=== PATIENT | male | born 1960 | race Caucasian/White ===

== ENCOUNTER 2018-01-19 00:06 | Emergency (ER) | payer OTHER ==
[2018-01-19] MEDS ORDERED: LIDOCAINE 1% MPF 5 ML VIAL ONE (00:40)
--- NOTE | 2018-01-19 01:27 | ER ---
Nurse's Notes [facility] Name: Glen Kraft Age: 57 yrs Sex: Male : 1960 Arrival Date: 01/19/2018 Time: 00:08 Bed 7 Private MD: Diagnosis: Crushing injury of right index finger Presentation: 01/19 00:18 Presenting complaint: Patient states: Reports he smashed his finger Saturday on a soda rv machine and today he smashed his finger on a piece of plywood and pain and swelling got worse. Transition of care: patient was not received from another setting of care. Onset of symptoms was January 19, 2018. Risk Assessment: Do you want to hurt yourself or someone else? Patient reports no desire to harm self or others. Initial Sepsis Screen: Does the patient meet any 2 criteria? No. Patient's initial sepsis screen is negative. Does the patient have a suspected source of infection? No. Patient's initial sepsis screen is negative. Care prior to arrival: None. 00:18 Method Of Arrival: Ambulatory rv 00:18 Acuity: RODERICK 3 rv Triage Assessment: 00:31 General: Appears uncomfortable, Behavior is calm, cooperative, appropriate for age. rv Pain: Complains of pain in dorsal aspect of distal phalanx of right index finger and right index fingernail Pain currently is 5 out of 10 on a pain scale. Quality of pain is described as throbbing. Neuro: Level of Consciousness is awake, alert, obeys commands, Oriented to person, place, time, situation. Cardiovascular: Patient's skin is warm and dry. Respiratory: Airway is patent Respiratory effort is even, unlabored, Respiratory pattern is regular, symmetrical. Derm: Skin is pink, warm \T\ dry. Musculoskeletal: Circulation, motion, and sensation intact. Injury Description: hematoma under right index nail bed. Historical: - Allergies: 00:28 No Known Allergies; rv - Home Meds: 00:28 Nexium 40 mg Oral cpDR 1 cap once daily for Gastroesophageal reflux [Active]; rv lisinopril 40 mg Oral tab 1 tab once daily for Hypertension [Active]; isosorbide mononitrate 30 mg Oral Tb24 1 tab once daily for Chronic Stable Angina Pectoris [Active]; hydrochlorothiazide 25 mg Oral tab 1 tab once daily for Hypertension [Active]; Effient 10 mg Oral tab 1 tab once daily for Myocardial Reinfarction Prevention [Active]; carvedilol 6.25 mg Oral tab 1 tab 2 times per day for Hypertension [Active]; atorvastatin 10 mg Oral tab 1 tab once daily for High Blood Pressure [Active]; aspirin 81 mg Oral chew 1 tab once daily [Active]; amlodipine 10 mg tab 1 tab once daily for Hypertension [Active]; - PMHx: 00:28 GERD; Hernia; Hypertension; Myocardial infarction; rv - PSHx: 00:28 Heart stents; Cholecystectomy; Tonsillectomy; wisdom teeth; rv - Immunization history:: Last tetanus immunization: < 10 years ago. - Social history:: Smoking status: Patient/guardian denies using tobacco. - Ebola Screening: : No symptoms or risks identified at this time. Screenin:26 Abuse screen: Denies threats or abuse. Nutritional screening: No deficits noted. rv Tuberculosis screening: No symptoms or risk factors identified. Fall Risk None identified. Assessment: 00:31 General: see triage assessment. tl2 01:58 Reassessment: Patient appears in no apparent distress at this time. Patient and/or tl2 family updated on plan of care and expected duration. Pain level reassessed. Patient is alert, oriented x 3, equal unlabored respirations, skin warm/dry/pink. Pt verbalized understanding of discharge instructions, need for follow up, wound care and prescription usage. Vital Signs: 00:29 BP 147 / 83; Pulse 67; Resp 18; Temp 97.9; Pulse Ox 98% on R/A; Weight 117.93 kg; rv Height 6 ft. 1 in. (185.42 cm); Pain 5/10; 01:04 BP 122 / 79; Pulse 66; Resp 18; Pulse Ox 98% on R/A; tl2 00:29 Body Mass Index 34.30 (117.93 kg, 185.42 cm) rv ED Course: 00:08 Patient arrived in ED. ds1 00:14 Chelle Raymond FNP is PHCP. nh 00:14 Danny Flores MD is Attending Physician. nh 00:20 Arm band placed on right wrist. Patient placed in an exam room, on a stretcher, on rv pulse oximetry. 00:26 Triage completed. rv 00:30 Patient has correct armband on for positive identification. Bed in low position. Call rv light in reach. 00:42 X-ray completed. Portable x-ray completed in exam room. Patient tolerated procedure sg4 well. 00:47 Hand Right 3 View XRAY In Process Unspecified. EDMS 01:57 Dressings: Tube gauze X 1; dorsal aspect of distal phalanx of right index finger. tl2 01:58 No provider procedures requiring assistance completed. Patient did not have IV access tl2 during this emergency room visit. Administered Medications: 01:41 Drug: Tetanus-Diphtheria Toxoid Adult 0.5 ml {Museum Director: [employer]. Exp: tl2 03/01/2020. Lot #: [id number]. } Route: IM; Site: right deltoid; 01:59 Follow up: Response: No adverse reaction tl2 Outcome: 01:26 Discharge ordered by . fl 01:58 Discharged to home ambulatory, with family. tl2 01:58 Condition: stable 01:58 Discharge instructions given to patient, family, Instructed on discharge instructions, follow up and referral plans. medication usage, wound care, Demonstrated understanding of instructions, follow-up care, medications, wound care, Prescriptions given X 3. 01:59 Patient left the ED. tl2 Signatures: Dispatcher [employer] EDMS Chelle Raymond, AMPOULE FILLER AND SEALER AMPOULE FILLER AND SEALER Daria Stanley ds1 Brooke Martínez, RN RN tl2 Dick Bradford, ESTEFANIA RN Evelia Drake sg4
--- NOTE | 2018-01-19 01:27 | EDPHYS ---
Physician Documentation [facility] Name: Glen Kraft Age: 57 yrs Sex: Male : 1960 Arrival Date: 01/19/2018 Time: 00:08 Bed 7 Private MD: ED Physician Danny Flores HPI: 01/19 01:19 This 57 yrs old Male presents to ER via Ambulatory with complaints of Finger nh Injury. 01:19 Mechanism of injury: Crush injury: from sewing machine. Associated injuries: The nh patient sustained right index finger. Onset: The symptoms/episode began/occurred 4 day(s) ago. The patient has not experienced similar symptoms in the past. The patient has not recently seen a physician. Historical: - Allergies: 00:28 No Known Allergies; rv - Home Meds: 00:28 Nexium 40 mg Oral cpDR 1 cap once daily for Gastroesophageal reflux [Active]; rv lisinopril 40 mg Oral tab 1 tab once daily for Hypertension [Active]; isosorbide mononitrate 30 mg Oral Tb24 1 tab once daily for Chronic Stable Angina Pectoris [Active]; hydrochlorothiazide 25 mg Oral tab 1 tab once daily for Hypertension [Active]; Effient 10 mg Oral tab 1 tab once daily for Myocardial Reinfarction Prevention [Active]; carvedilol 6.25 mg Oral tab 1 tab 2 times per day for Hypertension [Active]; atorvastatin 10 mg Oral tab 1 tab once daily for High Blood Pressure [Active]; aspirin 81 mg Oral chew 1 tab once daily [Active]; amlodipine 10 mg tab 1 tab once daily for Hypertension [Active]; - PMHx: 00:28 GERD; Hernia; Hypertension; Myocardial infarction; rv - PSHx: 00:28 Heart stents; Cholecystectomy; Tonsillectomy; wisdom teeth; rv - Immunization history:: Last tetanus immunization: < 10 years ago. - Social history:: Smoking status: Patient/guardian denies using tobacco. - Ebola Screening: : No symptoms or risks identified at this time. ROS: 01:19 Constitutional: Negative for fever, chills, and weight loss, Eyes: Negative for injury, nh pain, redness, and discharge, ENT: Negative for injury, pain, and discharge, Neck: Negative for injury, pain, and swelling, Cardiovascular: Negative for chest pain, palpitations, and edema, Respiratory: Negative for shortness of breath, cough, wheezing, and pleuritic chest pain, Abdomen/GI: Negative for abdominal pain, nausea, vomiting, diarrhea, and constipation, Back: Negative for injury and pain, : Negative for injury, bleeding, discharge, and swelling, Skin: Negative for injury, rash, and discoloration, Neuro: Negative for headache, weakness, numbness, tingling, and seizure, Psych: Negative for depression, anxiety, suicide ideation, homicidal ideation, and hallucinations, Allergy/Immunology: Negative for hives, rash, and allergies, Endocrine: Negative for neck swelling, polydipsia, polyuria, polyphagia, and marked weight changes, Hematologic/Lymphatic: Negative for swollen nodes, abnormal bleeding, and unusual bruising. : MS/extremity: Positive for ecchymosis. Exam: : Constitutional: This is a well developed, well nourished patient who is awake, alert, nh and in no acute distress. Head/Face: Normocephalic, atraumatic. Eyes: Pupils equal round and reactive to light, extra-ocular motions intact. Lids and lashes normal. Conjunctiva and sclera are non-icteric and not injected. Cornea within normal limits. Periorbital areas with no swelling, redness, or edema. ENT: Nares patent. No nasal discharge, no septal abnormalities noted. Tympanic membranes are normal and external auditory canals are clear. Oropharynx with no redness, swelling, or masses, exudates, or evidence of obstruction, uvula midline. Mucous membranes moist. Neck: Trachea midline, no thyromegaly or masses palpated, and no cervical lymphadenopathy. Supple, full range of motion without nuchal rigidity, or vertebral point tenderness. No Meningismus. Chest/axilla: Normal chest wall appearance and motion. Nontender with no deformity. No lesions are appreciated. Cardiovascular: Regular rate and rhythm with a normal S1 and S2. No gallops, murmurs, or rubs. Normal PMI, no JVD. No pulse deficits. Respiratory: Lungs have equal breath sounds bilaterally, clear to auscultation and percussion. No rales, rhonchi or wheezes noted. No increased work of breathing, no retractions or nasal flaring. Abdomen/GI: Soft, non-tender, with normal bowel sounds. No distension or tympany. No guarding or rebound. No evidence of tenderness throughout. Back: No spinal tenderness. No costovertebral tenderness. Full range of motion. MS/ Extremity: Pulses equal, no cyanosis. Neurovascular intact. Full, normal range of motion. Neuro: Awake and alert, GCS 15, oriented to person, place, time, and situation. Cranial nerves II-XII grossly intact. Motor strength 5/5 in all extremities. Sensory grossly intact. Cerebellar exam normal. Normal gait. Psych: Awake, alert, with orientation to person, place and time. Behavior, mood, and affect are within normal limits. 01:19 Skin: subungual hematoma to right index finger with lifting of the nail matrix. Vital Signs: 00:29 BP 147 / 83; Pulse 67; Resp 18; Temp 97.9; Pulse Ox 98% on R/A; Weight 117.93 kg; rv Height 6 ft. 1 in. (185.42 cm); Pain 5/10; 01:04 BP 122 / 79; Pulse 66; Resp 18; Pulse Ox 98% on R/A; tl2 00:29 Body Mass Index 34.30 (117.93 kg, 185.42 cm) rv Procedures: 01:19 Performed fingernail removal. digital block performed to right index finger with lido nh and marcaine with a 4 to 1 ratio. Nail was removed. Patient tolerated well. MDM: 00:14 Patient medically screened. ak 01:19 Data reviewed: vital signs, nurses notes, radiologic studies, I have discussed the ak patient's presentation/case with the attending Emergency Department Physician; and as a result, I will discharge patient. Counseling: I had a detailed discussion with the patient and/or guardian regarding: the historical points, exam findings, and any diagnostic results supporting the discharge/admit diagnosis, radiology results, the need for outpatient follow up, to return to the emergency department if symptoms worsen or persist or if there are any questions or concerns that arise at home. 01/19 00:31 Order name: Hand Right 3 View XRAY ak Administered Medications: 01:41 Drug: Tetanus-Diphtheria Toxoid Adult 0.5 ml {Vocational Rehabilitation Technician: [employer]. Exp: tl2 03/01/2020. Lot #: [id number]. } Route: IM; Site: right deltoid; 01:59 Follow up: Response: No adverse reaction tl2 Disposition: 01/19/18 01:26 Discharged to Home. Impression: Crushing injury of right index finger. - Condition is Stable. - Discharge Instructions: Sutured Wound Care. - Prescriptions for Tylenol- Codeine #3 300-30 mg Oral Tablet - take 2 tablet by ORAL route every 6 hours As needed; 30 tablet. Doxycycline Hyclate 100 mg Oral Tablet - take 1 tablet by ORAL route every 12 hours; 20 tablet. Bactrim 400- 80 mg Oral Tablet - take 2 tablets by ORAL route 2 times per day; 20 tablet. - Medication Reconciliation Form, Thank You Letter, Antibiotic Education, Prescription Opioid Use form. - Follow up: Private Physician; When: 1 - 2 days; Reason: Continuance of care. - Problem is new. - Symptoms are unchanged. Addendum: 01/22/2018 21:50 Co-signature as Attending Physician, Danny Flores MD Available for consultation at p s1 all times. . Signatures: Dispatcher [employer] EDMS Chelle Raymond, PROJECT CONTROL ANALYST PROJECT CONTROL ANALYST ak Brooke Martínez RN RN tl2 Danny Flores MD MD [facility] Dick Bradford RN RN rv Corrections: (The following items were deleted from the chart) 01/19 01:59 01:26 01/19/2018 01:26 Discharged to Home. Impression: Crushing injury of right index tl2 finger. Condition is Stable. Forms are Medication Reconciliation Form, Thank You Letter, Antibiotic Education, Prescription Opioid Use. Follow up: Private Physician; When: 1 - 2 days; Reason: Continuance of care. Problem is new. Symptoms are unchanged. ak
[2018-01-19] MEDS ORDERED: TETANUS & DIPHTHERIA TOX,ADULT 0.5 ML VIAL ONE (01:40)
--- NOTE | 2018-01-19 12:38 | RAD REPORT ---
EXAM DESCRIPTION: RAD - Hand Right 3 View - 01/19/2018 12:48 am CLINICAL HISTORY: SMASH INJURY COMPARISON: No comparisons FINDINGS: Soft tissue swelling affects the right second digit. A fracture is not clearly evident.
== END 2018-01-19 01:59 | disposition home or self-care (01) ==
LOC: ER 00:06
PROC: 0HDQXZZ Extraction of Finger Nail, External Approach (ICD-10-PCS; principal; 2018-01-19)
DX: S67.190A Crushing injury of right index finger, initial encounter (principal); W23.0XXA Caught, crushed, jammed, or pinched between moving objects, initial encounter; Z23 Encounter for immunization; I10 Essential (primary) hypertension; I25.2 Old myocardial infarction; K21.9 Gastro-esophageal reflux disease without esophagitis; Z79.82 Long term (current) use of aspirin; Z79.899 Other long term (current) drug therapy
CPT/HCPCS: 90714; 99284